=== PATIENT | male | born 1945 | race Caucasian/White ===

== ENCOUNTER 2020-09-12 10:46 | Outpatient (CLI) | payer MEDICARE ==
[2020-09-12 12:48] LABS: Hemoglobin 9.8 g/dL (13.5-17.5)
[2020-09-12 13:07] LABS: Anion Gap 11 mmol/L (10-20); BUN (Urea Nitrogen) 12 mg/dL (8.4-25.7); Calc. Creatinine Clearance 0 mL/min (70-130); Carbon Dioxide 30 mmol/L (23-31); Chloride 98 mmol/L (98-107); Glucose 78 mg/dL (83-110); Potassium 4.7 mmol/L (3.5-5.1); Sodium 134 mmol/L (136-145)
[2020-09-13 02:35] LABS: SARS-CoV-2 PCR by NAA Not Detected (NotDetected)
== END 2020-09-12 10:47 | disposition home or self-care (01) ==
LOC: CSHLAB 10:46
PROVIDERS: ATTEND Otolaryngology Otolaryngic Allergy
DX: Z01.818 Encounter for other preprocedural examination (principal); Z20.822 Contact with and (suspected) exposure to COVID-19; R22.1 Localized swelling, mass and lump, neck; J38.7 Other diseases of larynx; D49.1 Neoplasm of unspecified behavior of respiratory system; R94.31 Abnormal electrocardiogram [ECG] [EKG]
CPT/HCPCS: 80048; 85014; 85018; 87635; 93005; 93010; U0003; U0005